=== PATIENT | male | born 1970 | race African-American/Black ===

== ENCOUNTER 2017-10-14 13:58 | Outpatient (RCR) | payer OTHER | END 2017-11-08 | LOC: M ST 13:58 | DX: Z51.89 Encounter for other specified aftercare (principal); R47.89 Other speech disturbances | CPT/HCPCS: 96125 ==

== ENCOUNTER 2017-11-12 14:56 | Outpatient (RCR) | payer OTHER | END 2017-12-08 | LOC: M ST 14:56 | DX: F80.9 Developmental disorder of speech and language, unspecified (principal) | CPT/HCPCS: G0515 ==

== ENCOUNTER 2017-12-29 15:54 | Outpatient (RCR) | payer OTHER | END 2018-01-08 | LOC: M ST 15:54 | DX: R47.9 Unspecified speech disturbances (principal) | CPT/HCPCS: 92507 ==

== ENCOUNTER 2018-02-24 15:38 | Outpatient (RCR) | payer OTHER | END 2018-03-10 | LOC: M ST 15:38 | DX: R47.89 Other speech disturbances (principal) | CPT/HCPCS: 92507 ==

== ENCOUNTER 2018-03-18 15:41 | Outpatient (RCR) | payer OTHER | END 2018-04-10 | LOC: M ST 15:41 | DX: R47.9 Unspecified speech disturbances (principal) | CPT/HCPCS: 92507 ==

== ENCOUNTER 2018-04-16 14:48 | Outpatient (RCR) | payer OTHER | END 2018-05-10 | LOC: M ST 14:48 | DX: R62.0 Delayed milestone in childhood (principal) | CPT/HCPCS: 92507 ==

== ENCOUNTER 2018-05-13 15:03 | Outpatient (RCR) | payer OTHER | END 2018-06-10 | LOC: M ST 15:03 | DX: R47.9 Unspecified speech disturbances (principal) | CPT/HCPCS: 92507 ==

== ENCOUNTER → 2018-08-21 | Outpatient (CLI) | payer OTHER ==
--- NOTE | 2018-08-21 16:51 | REP ---
MR Brain without contrast History: Memory impairment There are no areas of abnormal signal intensity in the brain. There is no intraparenchymal hemorrhage, infarct, mass or midline shift. The ventricular system and cortical sulci are dilated consistent with minimal volume loss. There is no extracerebral collection. Mucosal thickening is present in the ethmoid and maxillary sinuses. Impression: Minimal volume loss. Electronically Signed by Varghese Bullock MD 08/21/2018 04:42 P
== END ==
LOC: M PLARAD 15:08
PROVIDERS: ATTEND Family Medicine
DX: G31.84 Mild cognitive impairment of uncertain or unknown etiology (principal)

== ENCOUNTER 2018-09-09 15:15 | Outpatient (RCR) | payer OTHER ==
--- NOTE | 2018-08-17 15:52 | NUR ---
Speech and language therapy recommended 2x weekly targeting articulation, fluency, and language. Refer to notes in evaluation, and previous assessments for more information. Addendum: 08/17/18 at 1553 by FRANKY MARTIN Amended: Links added.
== END 2018-09-10 ==
LOC: M ST 15:15
PROVIDERS: ATTEND Family Medicine
DX: R47.89 Other speech disturbances (principal)

== ENCOUNTER → 2018-09-21 | Outpatient (CLI) | payer OTHER ==
--- NOTE | 2018-09-21 20:03 | REP ---
MAXILLOFACIAL CT WITHOUT CONTRAST: HISTORY: Septal deviation. The frontal sinuses are hypoplastic. Mild mucosal thickening is present in the right maxillary sinus. Minimal mucosal thickening is present in the ethmoid and left maxillary sinuses. The frontal and sphenoid sinuses are clear. Mucosal thickening involves the osteomeatal units. The middle and inferior nasal turbinates are partially paradoxical. There is to bullosa of the left middle nasal turbinate. There is minimal deviation of the nasal septum to the right. A small spur is present arising from the right side of the nasal septum. The cribriform plate, medial moore of the orbits and optic canals are intact. The carotid canals form a segment of the posterolateral moore of the sphenoid sinus. IMPRESSION: Sinus mucosa thickening as described above. Electronically Signed by Varghese Bullock MD 09/22/2018 08:01 A
== END ==
LOC: M RAD 16:12
PROVIDERS: ATTEND Otolaryngology
DX: J34.89 Other specified disorders of nose and nasal sinuses (principal)

== ENCOUNTER 2018-10-21 09:32 | Emergency (ER) | payer OTHER ==
[~2018-10-21] VITALS: Ht 165.1 cm; Wt 73.9 kg
[2018-10-21] MEDS ORDERED: PRAM0.754 PO (09:56)
[2018-10-21] MEDS ORDERED: TRAZ-160 PO (09:56)
[2018-10-21] MEDS ORDERED: ROSU10TA5 PO (09:56)
[2018-10-21] MEDS ORDERED: LOSA50TA88 PO (09:56)
[2018-10-21] MEDS ORDERED: SENO8.6T5 PO (09:56)
[2018-10-21] MEDS ORDERED: SILD50TA PO (09:56)
[2018-10-21] MEDS ORDERED: PRAZ2CAP PO (09:56)
[2018-10-21] MEDS ORDERED: STOO100C PO (09:56)
[2018-10-21] MEDS ORDERED: AMLO10TA5 PO (09:56)
[2018-10-21 11:14] LABS: BASO % 0.1 % (0.0-1.0); EOS % 0.1 % (0.0-3.0); HEMATOCRIT 41.7 % (42.0-52.0); HEMOGLOBIN 14.9 g/dl (13.5-17.5); LYMPH % 14.5 % (24.0-44.0); MEAN CORPUSCULAR HEMOGLOBIN 33.9 pg (27.0-33.0); MEAN CORPUSCULAR HGB CONC 35.7 g/dl (32.0-36.5); MEAN CORPUSCULAR VOLUME 94.8 fl (80.0-96.0); MONO # 0.7 10^3/uL (0.0-0.8); MONO % 9.7 % (0.0-5.0); NEUTROPHILS # 5.1 10^3/uL (1.8-7.7); NEUTROPHILS % 75.2 % (36.0-66.0); PLATELET COUNT, AUTOMATED 145 10^3/uL (150-450); WHITE BLOOD COUNT 6.8 10^3/uL (4.0-10.0)
[2018-10-21 11:31] LABS: INR 0.97; PARTIAL THROMBOPLASTIN TIME 23.5 SECONDS (25.4-37.6)
[2018-10-21 11:42] LABS: D-DIMER QUANT 295.82 ng/ml (<500)
--- NOTE | 2018-10-21 11:47 | REP ---
Chest one-view HISTORY: Chest pain Comparison: 07/13/2018 The lungs are clear. The heart is normal in size. The pulmonary vasculature is normal in appearance. Impression: No acute disease. Electronically Signed by Varghese Bullock MD 10/21/2018 11:38 A
[2018-10-21 11:49] LABS: BLOOD UREA NITROGEN 17 MG/DL (7-18); CALCIUM LEVEL 10.1 MG/DL (8.5-10.1); CARBON DIOXIDE LEVEL 25 MEQ/L (21-32); CHLORIDE LEVEL 96 MEQ/L (98-107); CPK CREATINE PHOSPHOKINASE 362 U/L (39-308); CREATININE FOR GFR 0.73 MG/DL (0.70-1.30); GLOMERULAR FILTRATION RATE > 60.0 (>60); GLUCOSE, FASTING 108 MG/DL (70-100); MB/CK RELATIVE INDEX 0.55 (< OR =4); POTASSIUM SERUM 3.3 MEQ/L (3.5-5.1); SODIUM LEVEL 134 MEQ/L (136-145); TROPONIN I < 0.02 NG/ML (< 0.10)
[2018-10-21] MEDS ORDERED: ISOVUE-370 76% 100ML VIAL (Q9967) As Ordered ONE (13:33)
--- NOTE | 2018-10-21 14:20 | REP ---
CT ANGIOGRAM CHEST: 10/21/2018 COMPARISON: Portable chest today. CLINICAL HISTORY: Left-sided chest pain. Evaluate for pulmonary emboli. TECHNIQUE: Bolus of 75 mL Isovue 370 and scanning through the chest with CT angiogram protocol with coronal and sagittal thick slab MIP reformats and standard reformats. FINDINGS: The lung espinal are well inflated. There is no effusion, infiltrate, atelectasis or mass. No pulmonary nodule, pleural thickening, calcified pleural plaque or pneumothorax. No pneumomediastinum or pneumothorax. Heart is not enlarged. There is no pericardial thickening or effusion. Aorta is without aneurysm or dissection. The main, right and left pulmonary arteries and the mediastinum are without filling defects. The lobar, segmental and subsegmental arteries are also without filling defect or vessel cutoff to suggest pulmonary embolism. There is no pathologic sized mediastinal or hilar adenopathy. No mediastinal mass. Esophagus intact and no hiatal hernia evident. The bone windows show the sternum, manubrium, medial clavicles, scapulae, portion of the humeral head and the left is included, ribs and spine without any acute finding. There is a dorsal column stimulator to the level of T11. The upper abdomen shows diffuse intense fatty infiltration of the liver which appears somewhat enlarged. Spleen is not enlarged. There is no ascites in that portion of upper abdomen included. Left hepatic lobe enlarged. Adrenal glands symmetric and with fatty change. Upper poles of kidneys and the body and tail of the pancreas seen and unremarkable. That portion of the stomach included also unremarkable. IMPRESSION: 1. There is no CT evidence of pulmonary thromboembolism. 2. No aortic aneurysm or dissection, mediastinal hilar adenopathy or mass, acute abnormality of the bony thorax or pneumothorax/pneumomediastinum. 3. Diffuse fatty infiltration liver. 4. Bone windows show no evidence of rib fracture, focal lesion in the spine or ribs nor other acute finding. Electronically Signed by Abebe Lopes MD 10/21/2018 09:54 P
[2018-10-21 15:42] LABS: CPK CREATINE PHOSPHOKINASE 333 U/L (39-308); MB/CK RELATIVE INDEX 0.54 (< OR =4); TROPONIN I < 0.02 NG/ML (< 0.10)
[2018-10-21] MEDS ORDERED: amLODIPine 10 MG TAB PO ONE (16:30)
[2018-10-21] MEDS ORDERED: LOSARTAN 50 MG TAB PO ONE (16:30)
[2018-10-21 16:31] VITALS: BP 200/120
[2018-10-21 17:08] VITALS: BP 168/80
--- NOTE | 2018-10-21 20:54 | ECGEPIP ---
Stationary ECG Study [facility] - ED Test Date: 2018-10-21 Pat Name: KOLE BUENO Department: Room: - Gender: M Disability Liaison Officer: : 1970 Requested By: CHIKI Núñez PA-C Order Number: [id number] Reading MD: Diana Hernandez Measurements Intervals Randle Rate: 75 P: 66 HI: 124 QRS: 74 QRSD: 88 T: -27 QT: 391 QTc: 437 Interpretive Statements SINUS RHYTHM NONSPECIFIC T-WAVE ABNORMALITY NO PRIOR FOR COMPARISON Electronically Signed On 10-21-2018 20:54:49 EDT by Diana Hernandez
== END 2018-10-21 17:14 | disposition home or self-care (01) ==
LOC: M ED 09:32
DX: R07.9 Chest pain, unspecified (principal); R06.02 Shortness of breath; Z79.899 Other long term (current) drug therapy; Z88.1 Allergy status to other antibiotic agents; Z88.8 Allergy status to other drugs, medicaments and biological substances; Z87.891 Personal history of nicotine dependence
CPT/HCPCS: 36415; 71045; 71275; 80048; 82550; 82553; 84484; 85025; 85379; 85610; 85730; 93005; 93041; 94760; 99284; Q9967

== ENCOUNTER → 2018-12-08 | Outpatient (RCR) | payer OTHER ==
--- NOTE | 2018-11-19 17:38 | NUR ---
ST completed speech evaluation due to patient's history in speech therapy. Patient's speech articulation has not changed since he was discharged in of this year. He continues to present w/mild distortions in phonemes due to Brazilian being his 4th language. Patient provided most recent neurological evaluation and requested to work on cognitive linguistic skills. ST is sending referral in order to complete cognitive linguistic assessment as this was not on the initial referral. ST will complete cognitive linguistic assessment during next treatment session. Addendum: 11/19/18 at 1738 by FRANKY MARTIN Amended: Links added.
[~2018-12-08] MED LIST: AMLO10TA5 PO; LOSA50TA88 PO; PRAM0.754 PO; PRAZ2CAP PO; ROSU10TA5 PO; SENO8.6T5 PO; SILD50TA PO; STOO100C PO; TRAZ-160 PO
--- NOTE | 2018-12-10 08:48 | NUR ---
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 This clinician recommends therapy 1-2 x weekly over the next 8 weeks to target areas of deficit including memory, attention, and language comprehension. Addendum: 12/10/18 at 0850 by FRANKY MARTIN Amended: Links added.
== END | disposition home or self-care (01) ==
LOC: M ST 11-19 16:57
PROVIDERS: ATTEND Family Medicine
DX: R47.89 Other speech disturbances (principal)

== ENCOUNTER 2019-01-06 16:21 | Outpatient (RCR) | payer OTHER ==
[~2019-01-06 16:21] MED LIST changes: -TRAZ-160 PO; +TRAZ-252 PO
== END 2019-01-08 ==
LOC: M ST 16:21
PROVIDERS: ATTEND Family Medicine
DX: R47.89 Other speech disturbances (principal)
CPT/HCPCS: G0515 ×8

== ENCOUNTER 2019-01-28 13:45 | Outpatient (RCR) | payer OTHER | END 2019-02-07 | LOC: M ST 13:45 | PROVIDERS: ATTEND Family Medicine | DX: R47.89 Other speech disturbances (principal) | CPT/HCPCS: G0515 ×2 ==

== ENCOUNTER 2019-05-05 10:41 | Outpatient (RCR) | payer OTHER ==
[~2019-05-05 10:41] MED LIST changes: +MM S100C PO; -ROSU10TA5 PO; +ROSU10TA6 PO; -STOO100C PO
== END 2019-05-10 ==
LOC: M ST 10:41
PROVIDERS: ATTEND Family Medicine
DX: R47.89 Other speech disturbances (principal)
CPT/HCPCS: 96125; G0515

== ENCOUNTER 2019-06-08 17:15 | Outpatient (RCR) | payer OTHER | END 2019-06-10 | LOC: M ST 17:15 | PROVIDERS: ATTEND Family Medicine | DX: R47.89 Other speech disturbances (principal) | CPT/HCPCS: G0515 ×5 ==